=== PATIENT | female | born 1985 | race Caucasian/White ===

== ENCOUNTER 2019-04-24 19:55 | Emergency (ER) | payer BC, MEDICAID ==
[~2019-04-24] VITALS: Ht 165.1 cm; Wt 92.5 kg
[2019-04-24 20:49] VITALS: BP_SYST 136
--- NOTE | 2019-04-25 | NUR ---
Patient to ER bed H1 to gown for evaluation. Side rails up.
--- NOTE | 2019-04-25 00:02 | NUR ---
Pt brought by self, A&Ox4, pt presents to ER with c/o rt foot pain, states ran into a wall, skin pink and warm, cap refill <3, VSS.
--- NOTE | 2019-04-25 00:15 | NUR ---
Dr Jackson at bedside examining patient
[2019-04-25 00:32] VITALS: BP_SYST 132
--- NOTE | 2019-04-25 00:32 | NUR ---
Patient given written and verbal discharge instructions and verbalizes understanding. ER MD discussed with patient the results and treatment provided. Patient in stable condition. ID arm band removed. Rx of Motrin given. Patient educated on pain management and to follow up with PMD. Pain Scale 3/10 tolerable for pt. Opportunity for questions provided and answered. Medication side effect fact sheet provided.
== END 2019-04-25 00:32 | disposition home or self-care (01) ==
LOC: SED 19:55
DX: S92.514A Nondisplaced fracture of proximal phalanx of right lesser toe(s), initial encounter for closed fracture (principal); X58.XXXA Exposure to other specified factors, initial encounter; Y93.02 Activity, running; Y92.89 Other specified places as the place of occurrence of the external cause; Y99.8 Other external cause status
CPT/HCPCS: 99283